=== PATIENT | female | born 1980 | race Caucasian/White ===

== ENCOUNTER 2024-09-17 11:04 | Emergency (ER) | payer MEDICAID ==
[~2024-09-17] VITALS: Ht 154.9 cm; Wt 62.6 kg
[2024-09-17 11:18] VITALS: BP 153/103; TEMP 98.4
[2024-09-17] MEDS ORDERED: IBUP-1955 PO (11:58)
[2024-09-17] MEDS ORDERED: BENZ-13 PO (11:58)
[2024-09-17 12:01] VITALS: O2SAT 99
== END 2024-09-17 12:03 | disposition home or self-care (01) ==
LOC: ER 11:10
DX: J06.9 Acute upper respiratory infection, unspecified (principal); R05.9 Cough, unspecified; R09.81 Nasal congestion; I10 Essential (primary) hypertension